=== PATIENT | male | born 2000 | race Caucasian/White ===

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

== ENCOUNTER 2024-02-19 05:02 | Emergency (ER) | payer BC, OTHER ==
[~2024-02-19 05:02] MED LIST changes: +ESCITALOPRAM20 MG PO; +FLOMAX0.4 MG PO; +GOOD NEIGHBOR P20 M1 PO; +HYDROXYZINE HCL25 M1 PO; +PERCOCET 325 MG1 TA2 PO; +ZOFRAN ODT4 MG PO
[2024-02-19] MEDS ORDERED: HYDROXYZINE HYD50 M1 PO (05:27)
[2024-02-19] MEDS ORDERED: BUSPAR 15MG TAB15 MG PO (05:27)
[2024-02-19 06:00] VITALS: BP 110/70
== END 2024-02-19 06:00 | disposition home or self-care (01) ==
LOC: ED 05:02
DX: F45.8 Other somatoform disorders (principal)